=== PATIENT | female | born 1960 | race Caucasian/White ===

== ENCOUNTER 2019-12-22 18:02 | Emergency (ER) | payer OTHER, SELFPAY ==
[2019-12-22 18:16] VITALS: BP 118/78; PULSE 96; RESP 18; TEMP 36.4; O2SAT 98
--- NOTE | 2019-12-22 18:16 | ED.URI ---
HPI - URI/Sore Throat General Chief Complaint: Upper Respiratory Infection Stated Complaint: Possible Sinus infection History of Present Illness HPI Narrative: This is a 59-year-old female comes in complaining of sinus pressure headache nasal drainage states that she has been using a [place] pot taking Claritin said that she has been using Flonase and she cannot get rid of the headache patient says she is taken Benadryl and Sudafed and symptoms are any better they are worse patient denies any fever nausea vomiting and/or diarrhea Related Data Home Medications Medication Instructions Recorded Confirmed alprazolam [Xanax] 0.5 mg PO TID 12/22/19 12/22/19 hydrocodone-acetaminophen [[place]] 1 tablet PO TID 12/22/19 12/22/19 naproxen [Naprosyn] 500 mg PO BID 12/22/19 12/22/19 Allergies Allergy/AdvReac Type Severity Reaction Status Date / Time No Known Allergies Allergy Verified 12/22/19 18:17 Review of Systems Review of Systems: Narrative: CONSTITUTIONAL: Denies fever, chills, or sweats. EYES: Denies visual changes, redness, or discharge. ENT: Reports rhinorrhea, congestion, sore throat, or otalgia. CARDIOVASCULAR:Denies chest pain, palpitations, or edema. RESPIRATORY: Denies cough or dyspnea. GASTROINTESTINAL: Denies abdominal pain, nausea, vomiting, or diarrhea. GENITOURINARY: Denies dysuria or hematuria. SKIN:[Denies rash or itching. MUSCULOSKELETAL:Denies back pain, joint pain, or myalgia. NEUROLOGIC: Denies headache, numbness, or weakness. PSYCHIATRIC:Denies anxiety or depression PMFSH Social History Social History Gender identity (if verbalized by the patient): Female Comments At time as signature, I have reviewed and agree with nursing past medical, social, surgical and family history. Please see nursing chart for further information. There is no relevant family history pertinent to the presenting complaint. Exam Narrative: Exam Narrative: GENERAL:Well-appearing, well-nourished, and in no acute distress. HEAD:Normocephalic, atraumatic. EYES: PERRLA and EOMI. ENT: Nares clear, moderate clear nasal drainage rhinorrhea or epistaxis. Mucous membranes moist. Facial pressure NECK: Supple. CHEST: Clear to auscultation. No respiratory distress. HEART: Regular rate and rhythm. No murmur heard. Normal peripheral pulses. ABDOMEN: Soft, nontender, nondistended, normal active bowel sounds. EXTREMITIES: Normal range of motion. No edema. SKIN: Warm, dry, no rash. NEURO: No focal deficits. Alert and oriented x3. MDM - URI/Sore Throat Differential Diagnosis Differential diagnosis: Likely upper respiratory infection, otitis media, sinusitis, viral infection and pharyngitis Discharge Plan Discharge Clinical Impression: Sinusitis Qualifiers: Sinusitis location: unspecified location Chronicity: chronic Qualified Code(s): J32.9 - Chronic sinusitis, unspecified Patient Disposition: Home, Self-Care Condition: Stable Instructions: Antibiotic Form, Sinusitis (ED), Allergies (ED), Warm Compress or Soak (ED) Prescriptions: New amoxicillin-pot clavulanate [Augmentin] 875-125 mg tablet 1 tablet PO Q12H 10 Days Qty: 20 RF: 0 No Action alprazolam [Xanax] 0.5 mg Tablet 0.5 mg PO TID RF: 0 hydrocodone-acetaminophen [Elizabeth] 7.5-325 mg Tablet 1 tablet PO TID RF: 0 naproxen [Naprosyn] 500 mg Tablet 500 mg PO BID RF: 0 Follow-up/Referrals: Danny,Ras Quijano MD [Primary Care Provider] - Time of Disposition: 18:21 Discharge Date/Time: 12/22/19 18:24
== END 2019-12-22 18:24 | disposition home or self-care (01) ==
PROVIDERS: Emergency Provider Nurse Practitioner Family; PCP Internal Medicine
DX: J32.9 Chronic sinusitis, unspecified (principal); M19.90 Unspecified osteoarthritis, unspecified site; F41.9 Anxiety disorder, unspecified
CPT/HCPCS: 99213; G0463

== ENCOUNTER 2020-04-27 04:07 | Emergency (ER) | payer OTHER, SELFPAY ==
[2020-04-27 04:08] VITALS: BP 149/97; PULSE 68; RESP 20; TEMP 36.7; O2SAT 100
--- NOTE | 2020-04-27 04:43 | PC.NURSE ---
this pt attempted IV x2, no success. debby aviles states he will attempt.
[2020-04-27] MEDS: KETOROLAC 30 MG/ML VIAL (*BKC) IV PUSH (04:50)
[2020-04-27] MEDS: SODIUM CHLORIDE 0.9% IV 1,000 ML 999 ML IV CONT (04:51)
[2020-04-27] MEDS: ONDANSETRON INJ 4 MG/2 ML VIAL IV PUSH (04:51)
[2020-04-27 05:29] VITALS: BP 135/79; PULSE 76; RESP 14; O2SAT 98
--- NOTE | 2020-04-27 05:29 | PC.NURSE ---
pt states nausea is gone but states headache pain still 04/04
[2020-04-27 05:32] LABS: Basophils Percent Auto 0.5 % (0.2-1.2); Eosinophils Absolute Auto 0.2 K/mm3 (0-0.3); Eosinophils Percent Auto 2.7 % (0-4.4); Hematocrit 36.3 % (37.0-47.0); Hemoglobin 12.1 g/dL (12.0-15.0); Immature Granulocyte Absolute 0.01 K/mm3 (0.00-0.031); Immature Granulocyte Percent A 0.2 % (0-0.5); Lymphocytes Absolute Auto 1.74 K/mm3 (0.9-3.2); Lymphocytes Percent Auto 30.8 % (18.3-44.2); Mean Corpuscular HGB Conc 33.3 g/dl (32-36); Mean Corpuscular Hemoglobin 30.6 pg (26-34); Mean Corpuscular Volume 91.7 fl (80-100); Mean Platelet Volume 10.6 fl (7.4-10.4); Monocytes Absolute Auto 0.7 K/mm3 (0.1-0.6); Monocytes Percent Auto 11.9 % (2.6-8.5); Neutrophils Absolute Auto 3.1 K/mm3 (1.3-6.7); Neutrophils Percent Auto 53.9 % (45.5-73.1); Platelet Count Result 323 k/mm3 (150-375); Red Blood Count 3.96 M/mm3 (4.2-5.4); Red Cell Distribution Width 13.7 % (11.5-14.5); White Blood Count 5.7 K/mm3 (4.5-10.0)
[2020-04-27 05:44] LABS: Alanine Aminotransferase 14 U/L (4-35); Albumin Level 4.1 g/dL (3.5-5.1); Alkaline Phosphatase 65 U/L (38-126); Anion Gap 8.7 mmol/L (7-16); Aspartate Amino Transferase 26 U/L (14-36); Bilirubin,Total 0.5 mg/dL (0.2-1.3); Blood Urea Nitrogen 16 mg/dL (7-17); Calcium 9.6 mg/dL (8.4-10.2); Carbon Dioxide 26 mmol/L (22-30); Chloride 107 mmol/L (98-107); Estimated Glomerular Filt Rate > 60; Glucose 103 mg/dL (65-105); Lipase 117 U/L (23-300); Potassium 3.7 mmol/L (3.4-5.0); Sodium 138 mmol/L (137-145)
--- NOTE | 2020-04-27 06:09 | ED.GENADULT ---
HPI - General Adult General Chief complaint: Headache Stated complaint: N/V, HEADACHE Time Seen by Provider: 04/27/20 04:17 Source: RN notes reviewed and old records reviewed History of Present Illness HPI narrative: Patient presents emergency department from home for sinus pain and pressure. Patient states she has a history of chronic sinusitis and is followed by Dr. kan team. She had surgery done on her sinuses in [address] Loera would like to do surgery again for her sinuses but she states she is unable to at this time. Patient states for the past 3 days she has been having pain in her face in the region of her sinuses with increased sinus drainage. She states this is consistent with her acute flares of her sinusitis. She states it does cause her to have a frontal headache as well as nausea and some vomiting this evening from the drainage. She denies any fevers or chills does report right ear pain. Denies chest pain or shortness of breath Related Data Home Medications Medication Instructions Recorded Confirmed alprazolam [Xanax] 0.5 mg PO TID 12/22/19 12/22/19 hydrocodone-acetaminophen [[place]] 1 tablet PO TID 12/22/19 12/22/19 naproxen [Naprosyn] 500 mg PO BID 12/22/19 12/22/19 Allergies Allergy/AdvReac Type Severity Reaction Status Date / Time No Known Allergies Allergy Verified 12/22/19 18:17 Review of Systems Review of Systems: Narrative: Gen.: Denies fevers or chills Eyes: Denies eye pain or visual change ENT: See HPI Respiratory: Denies shortness of breath or cough CV: Denies chest pain or palpitations GI: Denies abdominal pain or diarrhea, reports nausea vomiting Musculoskeletal: Denies back pain or muscle pain Neuro: Denies numbness, tingling, weakness or focal weakness, reports frontal headache Skin: Denies rash Except as documented, all other systems reviewed and negative [facility] Past Medical History Medical History (Updated 04/27/20 @ 06:13 by Alexis Reyes DO) Asthma Chronic sinusitis Social History Social History (Updated 04/27/20 @ 06:11 by Alexis Reyes DO) Smoking packs per day: 0.5 Smoking cigarettes per day: 10.0 Gender identity (if verbalized by the patient): Female Exam Narrative: Exam Narrative: APPEARANCE: No acute distress, nontoxic, resting in bed EYES: EOMI HEENT: Normocephalic, atraumatic, right TM is erythematous, left TM is normal appearance, bilateral turbinates boggy, tender to palpation of bilateral frontal maxillary sinuses, oral mucosa moist no erythema posterior pharynx, postnasal drip RESPIRATORY: No respiratory distress Clear to auscultation bilaterally with no rhonchi wheezing or rales. CARDIOVASCULAR: Regular rate and rhythm without murmurs rubs or gallops. ABDOMINAL: Soft, nontender, nondistended, no rebound or guarding MUSCULOSKELETAl: Moves all extremities. No clubbing, cyanosis or edema. NEURO: Awake and alert. Following commands, speech normal, no focal deficits SKIN:: Warm, dry. No rashes lesions or abrasions PSYCHIATRIC: Normal affect/mood, Course Course Emergency Course: Patient currently sleeping in bed. Patient was awoken states she is feeling much better at this time. Discussed with patient results of workup and diagnosis. Discussed need for follow-up with primary care, proper use of medication, and reasons to return to the emergency department. Patient understands and agrees to current treatment plan. Vital Signs Vital signs: Vital Signs Temperature 98.0 F 04/27/20 04:08 Pulse Rate 68 04/27/20 04:08 Respiratory Rate 20 04/27/20 04:08 Blood Pressure 149/97 H 04/27/20 04:08 Pulse Oximetry 100 04/27/20 04:08 Temperature 98.0 F 04/27/20 04:08 Pulse Rate 76 04/27/20 05:29 Respiratory Rate 14 04/27/20 05:29 Blood Pressure 135/79 04/27/20 05:29 Pulse Oximetry 98 04/27/20 05:29 Medical Decision Making Vital Signs Vital Signs: Vital Signs Temperature 98.0 F 04/27/20 04:08 Pulse Rate
[2020-04-27] MEDS: AMOXICILLIN/CLAVULANATE K 875-125 MG TAB 1 TABLET PO (06:28)
[2020-04-27 06:29] VITALS: BP 123/74; PULSE 79; RESP 16; O2SAT 98
== END 2020-04-27 06:30 | disposition home or self-care (01) ==
PROVIDERS: Emergency Provider Emergency Medicine; PCP Internal Medicine
DX: H66.91 Otitis media, unspecified, right ear (principal); J32.9 Chronic sinusitis, unspecified; J45.909 Unspecified asthma, uncomplicated; F17.210 Nicotine dependence, cigarettes, uncomplicated
CPT/HCPCS: 36415; 80053; 83690; 85025; 96361; 96374; 96375; 99284; A9270; J1885; J2405; J7030

== ENCOUNTER 2020-05-14 15:03 | Outpatient (CLI) | payer OTHER, SELFPAY ==
--- NOTE | ~2020-05-14 | CT_ITS ---
EXAMINATION: CT sinus wo con DATE: 05/14/2020 15:31 INDICATION: Chronic sinusitis TECHNIQUE: Computed tomography (CT) of the paranasal sinuses was performed without intravenous contra st. Coronal reconstructions were obtained. Iterative reconstruction technique was employed. The dose- length product was 355.91 mGy-cm. COMPARISON: 03/28/2019 FINDINGS: No significant interval change in mild mucosal thickening the left frontal and and right ethmoid sinu ses and moderate mucosal thickening in the left ethmoid sinus. Mild mucosal thickening the bilateral maxillary sinuses extending along the bilateral ostiomeatal units both of which remain patent. Left-s ided maureen bullosa. Rightward deviation of the anterior nasal septum. The bilateral middle ear cavit ies and visualized portions of the mastoid air cells are clear. The orbits are normal. 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 IMPRESSION: 1. No significant interval change in chronic sinus disease. Reviewed, dictated and finalized at location A.
== END 2020-05-14 15:04 | disposition home or self-care (01) ==
PROVIDERS: PCP Internal Medicine; Visit Provider Otolaryngology
DX: J32.9 Chronic sinusitis, unspecified (principal)
CPT/HCPCS: 70486

== ENCOUNTER 2020-06-15 10:01 | Emergency (ER) | payer OTHER, SELFPAY ==
--- NOTE | 2020-06-15 10:07 | ED.URI ---
HPI - URI/Sore Throat General Chief Complaint: Upper Respiratory Infection Stated Complaint: possibl sinus infection Time Seen by Provider: 06/15/20 10:12 Source: patient and RN notes reviewed Mode of arrival: ambulatory Limitations: no limitations History of Present Illness HPI Narrative: 59-year-old female presents with concern for chronic sinusitis flareup. Reports she was seen by an ENT doctor and had a CT scan of her sinuses. Reports she is pending sinus surgery. Reports the latest symptoms started 4 days ago with sinus drainage, sinus congestion, sinus pain, postnasal drainage, nausea, malaise. Reports she has been using her typical medications, Flonase, allergy medicine. MD elicited complaint: nasal congestion Related Data Home Medications Medication Instructions Recorded Confirmed alprazolam [Xanax] 0.5 mg PO TID 12/22/19 06/15/20 hydrocodone-acetaminophen [[place]] 1 tablet PO TID 12/22/19 06/15/20 naproxen [Naprosyn] 500 mg PO BID 12/22/19 06/15/20 amitriptyline 25 mg PO DAILY 06/15/20 06/15/20 sumatriptan succinate 50 mg PO DAILY 06/15/20 06/15/20 Allergies Allergy/AdvReac Type Severity Reaction Status Date / Time No Known Allergies Allergy Verified 06/15/20 10:15 Review of Systems Review of Systems: Narrative: CONSTITUTIONAL: Denies malaise, chills, sweats, or fever. EYES: Denies visual changes, redness, or discharge. ENT: Reports rhinorrhea, congestion, sinus pain. Denies otalgia and sore throat. CARDIOVASCULAR: Denies chest pain, palpitations, or edema. RESPIRATORY: Reports cough. Denies dyspnea. GASTROINTESTINAL: Denies abdominal pain,vomiting, diarrhea. Reports nausea SKIN: Denies rash or itching. MUSCULOSKELETAL: Denies myalgia. NEUROLOGIC: Denies headache. All systems reviewed & are unremarkable except as noted in HPI and below PMFSH Past Medical History Medical History (Updated 06/15/20 @ 10:24 by Karen Smith NP) Asthma Chronic sinusitis Social History Social History Smoking packs per day: 0.5 Smoking cigarettes per day: 10.0 Gender identity (if verbalized by the patient): Female Comments At time of signature, agree with nursing past medical, surgical, social and family history. There is no relevant family history pertinent to the presenting complaint Exam Narrative: Exam Narrative: GENERAL: Well-appearing, well-nourished, and in no acute distress. HEAD: Normocephalic EYES: PERRLA, conjunctivae clear ENT: Nares clear, turbinates edematous and erythematous, clear discharge. Mucous membranes moist. TM pearly dykes with dull light reflex bilaterally; no tragal tenderness. Oropharynx not erythematous without lesions. Tonsils not enlarged and without exudate, no drooling, no hoarseness, no trismus, uvula midline. NECK: Supple. No lymphadenopathy CHEST: Clear to auscultation, breath sounds equal. No wheezing, rhonchi, rales, or stridor. No respiratory distress, speaks in full sentences. HEART: Regular rate and rhythm. No murmur heard. SKIN: Warm, dry, no rash. NEURO: Alert and oriented x3. PSYCH: Normal mood and affect Course Course Emergency Course: Patient is aware of diagnosis, understands and agrees to treatment plan. Anticipatory guidance given. Patient agrees to follow-up as directed and is aware of reasons to seek care at the emergency department. Portions of this record may have been created with voice recognition software Vital Signs Vital signs: Vital Signs Temperature 97.2 F L 06/15/20 10:13 Pulse Rate 78 06/15/20 10:13 Respiratory Rate 18 06/15/20 10:13 Blood Pressure 153/83 H 06/15/20 10:13 Pulse Oximetry 100 06/15/20 10:13 Temperature 97.2 F L 06/15/20 10:13 Pulse Rate 78 06/15/20 10:13 Respiratory Rate 18 06/15/20 10:13 Blood Pressure 153/83 H 06/15/20 10:13 Pulse Oximetry 100 06/15/20 10:13 Reviewed. Patient has history of hypertension MDM - URI/Sore Throat MDM Narrative
[2020-06-15 10:13] VITALS: BP 153/83; PULSE 78; RESP 18; TEMP 36.2; O2SAT 100
== END 2020-06-15 10:26 | disposition home or self-care (01) ==
PROVIDERS: Emergency Provider Nurse Practitioner; PCP Internal Medicine
DX: R11.0 Nausea (principal); J32.9 Chronic sinusitis, unspecified; J45.909 Unspecified asthma, uncomplicated
CPT/HCPCS: 99213; G0463

== ENCOUNTER 2020-07-04 15:07 | Outpatient (CLI) | payer OTHER, SELFPAY ==
[2020-07-04 16:25] LABS: Basophils Percent Auto 0.3 % (0.2-1.2); Hemoglobin 11.3 g/dL (12.0-15.0); Immature Granulocyte Absolute 0.02 K/mm3 (0.00-0.031); Immature Granulocyte Percent A 0.3 % (0-0.5); Lymphocytes Absolute Auto 1.56 K/mm3 (0.9-3.2); Lymphocytes Percent Auto 19.7 % (18.3-44.2); Mean Corpuscular HGB Conc 33.2 g/dl (32-36); Mean Corpuscular Hemoglobin 30.5 pg (26-34); Mean Corpuscular Volume 91.9 fl (80-100); Mean Platelet Volume 10.1 fl (7.4-10.4); Monocytes Absolute Auto 0.5 K/mm3 (0.1-0.6); Monocytes Percent Auto 5.8 % (2.6-8.5); Neutrophils Absolute Auto 5.8 K/mm3 (1.3-6.7); Neutrophils Percent Auto 73.9 % (45.5-73.1); Platelet Count Result 375 k/mm3 (150-375); Red Cell Distribution Width 14.6 % (11.5-14.5); White Blood Count 7.9 K/mm3 (4.5-10.0)
[2020-07-04 16:34] LABS: Alanine Aminotransferase 24 U/L (4-35); Alkaline Phosphatase 55 U/L (38-126); Anion Gap 7 mmol/L (8-16); Aspartate Amino Transferase 36 U/L (14-36); Bilirubin,Total 0.4 mg/dL (0.2-1.3); Blood Urea Nitrogen 28 mg/dL (7-17); Calcium 9.7 mg/dL (8.4-10.2); Carbon Dioxide 26 mmol/L (22-30); Chloride 104 mmol/L (98-107); Cholesterol 184 mg/dL (0-200); Estimated Glomerular Filt Rate > 60; Glucose 107 mg/dL (65-105); HDL Direct 86 mg/dL; Potassium 4.4 mmol/L (3.4-5.0); Sodium 137 mmol/L (137-145); Triglycerides 86 mg/dL (<150)
[2020-07-04 16:45] LABS: LDL Cholesterol Direct 80 mg/dL
[2020-07-04 16:46] LABS: Amphetamine Screen Urine Negative (Negative); Barbiturate Screen Urine Negative (Negative); Benzodiazepines Screen Urine Positive (Negative); Cannabinoid Screen Urine Positive (Negative); Cocaine Screen Urine Negative (Negative); Methadone Screen Urine Negative (Negative); Opiate Screen Urine Positive (Negative); Phencyclidine Screen Urine Negative (Negative)
[2020-07-04 17:05] LABS: Thyroid Stimulating Hormone 0.514 uIU/mL (0.465-4.680)
[2020-07-04 17:23] LABS: Free T4 Free Thyroxine 0.91 ng/mL (0.78-2.19)
== END 2020-07-04 15:08 | disposition home or self-care (01) ==
LOC: ANHLAB 15:09
PROVIDERS: PCP Internal Medicine; Visit Provider Internal Medicine
DX: Z13.6 Encounter for screening for cardiovascular disorders (principal); G89.4 Chronic pain syndrome; F41.9 Anxiety disorder, unspecified; F17.210 Nicotine dependence, cigarettes, uncomplicated
CPT/HCPCS: 36415; 80053; 80061; 80307; 82607; 83735; 84439; 84443; 85025

== ENCOUNTER 2020-07-09 13:55 | Emergency (ER) | payer OTHER, SELFPAY ==
[2020-07-09 14:10] VITALS: BP 143/85; PULSE 80; RESP 20; TEMP 36.2; O2SAT 100
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
== END 2020-07-09 14:41 | disposition home or self-care (01) ==
PROVIDERS: Emergency Provider Nurse Practitioner; PCP Internal Medicine
DX: M54.42 Lumbago with sciatica, left side (principal); F17.210 Nicotine dependence, cigarettes, uncomplicated; J45.909 Unspecified asthma, uncomplicated; F41.9 Anxiety disorder, unspecified
CPT/HCPCS: 99213; G0463

== ENCOUNTER 2020-07-20 17:33 | Emergency (ER) | payer OTHER, SELFPAY ==
[2020-07-20 17:35] VITALS: BP 133/98; PULSE 98; RESP 21; TEMP 36.4; O2SAT 100
--- NOTE | 2020-07-20 18:00 | ED.GENADULT ---
HPI - General Adult General Chief complaint: Extremity Injury, Upper Stated complaint: sciatic nerve pain x 2 weeks Time Seen by Provider: 07/20/20 17:39 Source: patient Mode of arrival: ambulatory Limitations: no limitations History of Present Illness HPI narrative: 59 years old white female presents with increased pain of the left lower extremity. History of after left lumbar radiculopathy for years. Patient ran out of hydrocodone this morning. Patient denies any recent trauma or new physical activity. 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 Patient denies any fever, chills, nausea, vomiting, diarrhea, constipation, urinary symptoms, chest pain, shortness of breath, sore throat, headache, exposure to anybody known having COVID-19. Currently patient on naproxen, muscle relaxant and hydrocodone. Scheduled to see a neurologist next week Patient drove herself to the emergency room Related Data Home Medications Medication Instructions Recorded Confirmed alprazolam [Xanax] 0.5 mg PO TID 12/22/19 07/09/20 hydrocodone-acetaminophen [[place]] 1 tablet PO TID 12/22/19 07/09/20 naproxen [Naprosyn] 500 mg PO BID 12/22/19 07/09/20 sumatriptan succinate 50 mg PO DAILY 06/15/20 07/09/20 Allergies Allergy/AdvReac Type Severity Reaction Status Date / Time No Known Allergies Allergy Verified 07/20/20 17:46 Review of Systems Review of Systems: Narrative: CONSTITUTIONAL: Denies fever, chills, or sweats. EYES: Denies visual changes, redness, or discharge. ENT: Denies rhinorrhea, congestion, sore throat, or otalgia. CARDIOVASCULAR: Denies chest pain, palpitations, or edema. RESPIRATORY: Denies cough or dyspnea. GASTROINTESTINAL: Denies abdominal pain, nausea, vomiting, or diarrhea. GENITOURINARY: Denies dysuria or hematuria. SKIN: Denies rash or itching. MUSCULOSKELETAL: Denies back pain, joint pain, or myalgia. NEUROLOGIC: Denies headache, numbness, or weakness. PSYCHIATRIC: Denies anxiety or depression. [facility] Past Medical History Medical History Asthma Chronic back pain Chronic sinusitis Social History Social History Smoking packs per day: 0.5 Smoking cigarettes per day: 10.0 Gender identity (if verbalized by the patient): Female Exam Narrative: Exam Narrative: General appearance: Well-developed, well-nourished Skin: Normal color Head: Normocephalic, nontraumatic Eyes: Clear conjunctiva ENT: Oropharynx normal, ears normal, nose normal Neck: Supple, nontender Chest and respiratory: Airway patent, no respiratory distress, no accessory muscle use Heart: Regular rate/rhythm Abdomen: Soft, nontender, no organomegaly, quiet bowel sounds Vascular: Normal peripheral pulses, normal capillary refill. Musculoskeletal: Limited range of motion of left hip because of pain. No bruises, no swelling, no rash, no deformity Neurologic: Alert and oriented ?3, [employer] is normal as tested, no gross motor deficit., Straight leg raising test is negative, intact knee and ankle reflexes Course Course Emergency Course: Stable, improving Vital Signs Vital signs: Vital Signs Temperature 36.4 C 07/20/20 17:35 Pulse Rate 98 07/20/20 17:35 Respiratory Rate 21 H 07/20/20 17:35 Blood Pressure 133/98 H 07/20/20 17:35 Pulse Oximetry 100 07/20/20 17:35 Temperature 36.4 C 07/20/20 17:35 Pulse Rate 98 07/20/20 17:35 Respiratory Rate 21 H 07/20/20 17:35 Blood Pressure 133/98 H 07/20/20 17:35 Pulse Oximetry 1
[2020-07-20] MEDS: HYDROmorphone HCL INJ (*CRX) 1 MG/ML SYR IM (18:12)
[2020-07-20] MEDS: ONDANSETRON HCL ODT 4 MG TABLET PO (18:12)
== END 2020-07-20 18:35 | disposition home or self-care (01) ==
PROVIDERS: Emergency Provider Emergency Medicine; PCP Internal Medicine
DX: M54.16 Radiculopathy, lumbar region (principal); G89.29 Other chronic pain; J45.909 Unspecified asthma, uncomplicated; F17.210 Nicotine dependence, cigarettes, uncomplicated
CPT/HCPCS: 96372; 99283; A9270; J1170

== ENCOUNTER 2020-08-02 12:32 | Outpatient (CLI) | payer OTHER, SELFPAY ==
--- NOTE | ~2020-08-02 | MR_ITS ---
EXAMINATION: MR cervical spine wo con DATE: 08/02/2020 13:52 INDICATION: Cervical disc disorder with myelopathy. TECHNIQUE: Magnetic resonance imaging (MRI) of the cervical spine was performed without intravenous c ontrast. Sequences included sagittal T2-weighted FSE, sagittal STIR FSE, sagittal T1-weighted FSE, ax ial MERGE, and axial T2-weighted FSE. COMPARISON: None FINDINGS: There is kyphosis of cervical spine. There is 2 mm anterolisthesis of C3 on C4 and C4 on C5 . Vertebral body heights are normal. There is mildly decreased disc height at C3-C4 and severely decr eased disc height at C5-C6 and C6-C7. The spinal cord signal intensity is normal. The following disc levels are specifically discussed: C2-C3: The disc does not extend beyond the endplate margin. There is no uncovertebral joint osteoarth ritis. There is severe right and moderate left facet joint osteoarthritis. There is mild right neural foraminal stenosis. There is no central canal stenosis. C3-C4: The disc does not extend beyond the endplate margin. There is severe bilateral uncovertebral j oint osteoarthritis. There is severe bilateral facet joint osteoarthritis. There is moderate bilatera l neural foraminal stenosis. There is mild central canal stenosis. C4-C5: The disc does not extend beyond the endplate margin. There is no uncovertebral joint osteoarth ritis. There is bilateral facet joint osteoarthritis. There is mild right neural foraminal stenosis. There is no central canal stenosis. C5-C6: The disc is bulging. There is severe bilateral uncovertebral joint osteoarthritis. There is mi ld bilateral facet joint osteoarthritis. There is moderate right and mild left neural foraminal steno sis. There is mild central canal stenosis. C6-C7: The disc is bulging. There is severe bilateral uncovertebral joint osteoarthritis. There is mi ld right facet joint osteoarthritis. There is mild right and moderate left neural foraminal stenosis. There is mild central canal stenosis. C7-T1: The disc does not extend beyond the endplate margin. There is no uncovertebral joint osteoarth ritis. There is severe bilateral facet joint osteoarthritis. There is mild left neural foraminal sten osis. There is no central canal stenosis. IMPRESSION: 1. Severe cervical spondylosis. Reviewed, dictated and finalized at location A. WORKER
== END 2020-08-02 12:33 | disposition home or self-care (01) ==
PROVIDERS: PCP Internal Medicine; Visit Provider Psychiatry & Neurology Neurology
DX: M47.12 Other spondylosis with myelopathy, cervical region (principal); M48.02 Spinal stenosis, cervical region; M48.03 Spinal stenosis, cervicothoracic region
CPT/HCPCS: 72141

== ENCOUNTER 2020-10-16 08:07 | Outpatient (CLI) | payer BC, SELFPAY ==
--- NOTE | 2020-10-16 11:30 | NEURO_ITS ---
Impression: # Complains of numbness of hands. # Bilateral Carpal Tunnel Syndrome, left more than right. # No ulnar neuropathy. # Normal needle/EMG exam. Nerve Conduction Studies Anti Sensory Summary Table Stim Site NR Peak (ms) P-T Amp (?V) Site1 Site2 Delta-P (ms) Dist (cm) Irineo (m/s) Left Median Anti Sensory (2-3nd Digit) Wrist 6.2 12.1 Wrist 2-3nd Digit 6.2 14.0 23 Wrist 6.6 25.0 Wrist 2-3nd Digit 6.2 14.0 23 Right Median Anti Sensory (2-3nd Digit) Wrist 4.1 29.7 Wrist 2-3nd Digit 4.1 14.0 34 Wrist 4.1 50.6 Wrist 2-3nd Digit 4.1 14.0 34 Left Radial Anti Sensory (Base 1st Digit) Wrist 2.4 8.9 Wrist Base 1st Digit 2.4 0.0 Right Radial Anti Sensory (Base 1st Digit) Wrist 2.9 6.2 Wrist Base 1st Digit 2.9 0.0 Left Sup Fibular Anti Sensory (Ant Lat Mall) 14 cm 3.2 13.8 14 cm Ant Lat Mall 3.2 16.0 50 Right Sup Fibular Anti Sensory (Ant Lat Mall) 14 cm 3.5 16.4 14 cm Ant Lat Mall 3.5 16.0 46 Left Sural Anti Sensory (Lat Mall) Calf 3.7 17.9 Calf Lat Mall 3.7 16.0 43 Right Sural Anti Sensory (Lat Mall) Calf 3.6 5.1 Calf Lat Mall 3.6 16.0 44 Left Ulnar Anti Sensory (5th Digit) Wrist 2.7 57.4 Wrist 5th Digit 2.7 14.0 52 Right Ulnar Anti Sensory (5th Digit) Wrist 2.8 47.6 Wrist 5th Digit 2.8 14.0 50 Motor Summary Table Stim Site NR Onset (ms) O-P Amp (mV) Site1 Site2 Delta-0 (ms) Dist (cm) Irineo (m/s) Left Median Motor (Abd Poll Brev) Wrist 4.0 2.0 Elbow Wrist 4.7 28.0 60 Elbow 8.7 2.4 Right Median Motor (Abd Poll Brev) Wrist 3.8 2.0 Elbow Wrist 4.6 26.0 57 Elbow 8.4 3.1 Left Peroneal Motor (Vastus Med) Ankle 4.2 2.5 Popit Ankle 7.8 36.0 46 Popit 12.0 1.6 Right Peroneal Motor (Vastus Med) Ankle 4.5 1.5 Popit Ankle 7.5 34.0 45 Popit 12.0 1.1 Left Tibial Motor (Abd Bueno Brev) Ankle 4.8 5.7 Knee Ankle 9.3 40.0 43 Knee 14.1 3.9 Right Tibial Motor (Abd Bueno Brev) Ankle 5.1 6.7 Knee Ankle 8.6 39.0 45 Knee 13.7 4.4 Left Ulnar Motor (Abd Dig Minimi) Wrist 2.6 10.0 A Elbow Wrist 4.7 29.0 62 A Elbow 7.3 8.7 Right Ulnar Motor (Abd Dig Minimi) Wrist 3.0 7.6 A Elbow Wrist 4.7 27.0 57 A Elbow 7.7 6.3 F Wave Studies NR F-Lat (ms) L-R F-Lat (ms) Left Median (Mrkrs) (Abd Poll Brev) 27.12 0.47 Right Median (Mrkrs) (Abd Poll Brev) 27.59 0.47 Left Peroneal (Mrkrs) (EDB) 52.46 1.17 Right Peroneal (Mrkrs) (EDB) 53.63 1.17 Left Tibial (Mrkrs) (Abd Hallucis) 53.13 0.30 Right Tibial (Mrkrs) (Abd Hallucis) 53.42 0.30 Left Ulnar (Mrkrs) (Abd Dig Min) 28.30 1.25 Right Ulnar (Mrkrs) (Abd Dig Min) 27.05 1.25 EMG Side Muscle Nerve Root Ins Act Fibs Amp Dur Recrt Comment Right 1stDorInt Ulnar C8-T1 Nml Nml Nml Nml Nml Right Ext Indicis Radial (Post Int) C7-8 Nml Nml Nml Nml Nml Right Ext Digitorum Radial (Post Int) C7-8 Nml Nml Nml Nml Nml Right BrachioRad Radial C5-6 Nml Nml Nml Nml Nml Right PronatorTeres Median C6-7 Nml Nml Nml Nml Nml Right Abd Poll Brev Median C8-T1 Nml Nml Nml Nml Nml Right AntTibialis Dp Br Fibular L4-5 Nml Nml Nml Nml Nml Right Gastroc Tibial S1-2 Nml Nml Nml Nml Nml Right Fibularis Long Sup B
== END 2020-10-16 08:08 | disposition home or self-care (01) ==
PROVIDERS: PCP Internal Medicine; Visit Provider Psychiatry & Neurology Neurology
DX: R20.2 Paresthesia of skin (principal); G56.03 Carpal tunnel syndrome, bilateral upper limbs
CPT/HCPCS: 95886; 95913

== ENCOUNTER 2021-05-04 01:29 | Day surgery (SDC) | payer MEDICAID, SELFPAY ==
--- NOTE | 2021-05-01 17:21 | WPDANESEPP ---
Anes - Eval Pre Procedure Procedure: Operation Date: 05/04/21 08:30 Proposed Procedures p Colonoscopy - Antwon Montemayor MD Date/Time: 05/01/21 17:21 Pre Op Diagnosis: positive cologuard Patient Data Age: 60 Gender: F Height: 1.63 m Weight: 53 kg Allergies Allergy/AdvReac Type Severity Reaction Status Date / Time No Known Allergies Allergy Verified 04/23/21 14:46 Home Medications Medication Instructions Recorded Confirmed Type alprazolam [Xanax] 0.5 mg PO TID 12/22/19 04/23/21 History hydrocodone-acetaminophen [[place]] 1 tablet PO TID PRN 12/22/19 04/23/21 History naproxen [Naprosyn] 500 mg PO BID 12/22/19 04/23/21 History vitamin B complex [B 1 tablet PO DAILY 04/23/21 04/23/21 History Complex-Vitamin B12] Patient hx anesthesia problems: none Family hx anesthesia problems: none PMFSH Past Medical History Medical History (Updated 05/01/21 @ 17:21 by Navdeep Marrufo DO) Anxiety Asthma Chronic back pain Chronic sinusitis Chronic, continuous use of opioids [place] for back pain Social History Social History Smoking packs per day: 0.5 Smoking cigarettes per day: 10.0 Years smoked: 25 Smoking pack-years: 12.50 Smoking status: Current every day smoker Tobacco type: cigarettes Substance use: current Substance use type: marijuana Last use: 04/21/21 Living arrangements: alone Gender identity (if verbalized by the patient): Female Spiritual care concerns: No Exam Day of Procedure 05/01/21 17:21
--- NOTE | 2021-05-04 06:42 | PM.HPGS ---
History of Present Illness History of Present Illness Consent: Risks, benefits, and alternatives have been discussed and questions answered. Patient agrees to proceed with procedure. Chief complaint: positive cologuard Narrative: Saúl Rangel is a 60 year old female referred for colon cancer screening. She had positive cold guard test. She has also lost 30 lb in last year. She has been found to be anemic as well. Review of Systems Review of Systems: All systems reviewed & are unremarkable except as noted in HPI and below PMFSH Past Medical History Medical History Anxiety Asthma Chronic back pain Chronic sinusitis Chronic, continuous use of opioids [place] for back pain Social History Social History Smoking packs per day: 0.5 Smoking cigarettes per day: 10.0 Years smoked: 25 Smoking pack-years: 12.50 Smoking status: Current every day smoker Tobacco type: cigarettes Substance use: current Substance use type: marijuana Last use: 04/21/21 Living arrangements: alone Gender identity (if verbalized by the patient): Female Spiritual care concerns: No Meds Home Medications and Allergies Home Medications Medication Instructions Recorded Confirmed Type alprazolam [Xanax] 0.5 mg PO TID 12/22/19 05/04/21 History hydrocodone-acetaminophen [[place]] 1 tablet PO TID PRN 12/22/19 05/04/21 History naproxen [Naprosyn] 500 mg PO BID 12/22/19 05/04/21 History vitamin B complex [B 1 tablet PO DAILY 04/23/21 05/04/21 History Complex-Vitamin B12] Allergies Allergy/AdvReac Type Severity Reaction Status Date / Time No Known Allergies Allergy Verified 05/04/21 07:44 Exam Resp: Auscultation: clear to auscultation bilaterally Cardio: Rate: regular rate Rhythm: regular rhythm GI: GI Palp: Yes Soft to palpation and No Tenderness to palpation present (GI) Assessment and Plan Assessment and plan (1) Colon cancer screening: Code(s): Z12.11 - Encounter for screening for malignant neoplasm of colon Status: Acute Assessment and Plan: Colonoscopy with possible biopsy or polypectomy or cautery or injection of substances.
[2021-05-04 07:47] VITALS: BP 143/91; PULSE 56; RESP 14; TEMP 36.1; O2SAT 100; BMI 19.6
--- NOTE | 2021-05-04 07:55 | P.PNAN_ITS ---
Anes - Eval Final PreProcedure Day of Procedure 05/04/21 07:55 Patient weight: thin Heart: regular rate and rhythm Lungs: clear to auscultation Airway: Mallampati scale class II Neurological: alert and oriented Last oral intake: >/= 8 hours ASA classification: III Emergent: no Anesthetic plan: proceed Anesthesia type and monitoring: general GIVS and standard monitoring Informed Consent: The patient's anesthetic plan and its attendant risks and be nefits were discussed with the patient/family/POA. Questions were solicited and answers provided to the satisfaction of the patient/family/POA.
[2021-05-04] MEDS: LACTATED RINGERS 1,000 ML 150 ML IV CONT (08:01)
[2021-05-04 08:52] VITALS: BP 123/83; PULSE 66; RESP 18; O2SAT 100
[2021-05-04 09:02] VITALS: BP 120/77; PULSE 66; RESP 18; O2SAT 100
[2021-05-04 09:12] VITALS: BP 110/71; PULSE 66; RESP 21; O2SAT 100
== END 2021-05-04 09:29 | disposition home or self-care (01) ==
PROVIDERS: PCP Internal Medicine; Visit Provider Internal Medicine Gastroenterology
PROC: 0DJD8ZZ Inspection of Lower Intestinal Tract, Via Natural or Artificial Opening Endoscopic (ICD-10-PCS; CPT 45378; principal; 2021-05-04 08:30)
DX: Z12.11 Encounter for screening for malignant neoplasm of colon (principal); D12.5 Benign neoplasm of sigmoid colon; R19.5 Other fecal abnormalities; F41.9 Anxiety disorder, unspecified; J45.909 Unspecified asthma, uncomplicated; F17.210 Nicotine dependence, cigarettes, uncomplicated; F12.90 Cannabis use, unspecified, uncomplicated
CPT/HCPCS: 43235; 88305; J2704; J7120